=== PATIENT | male | born 2000 | race African-American/Black ===

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

== ENCOUNTER 2020-01-20 13:15 | Emergency (ER) | payer OTHER, SELFPAY ==
[2020-01-20 14:04] VITALS: BP 128/59; PULSE 64; RESP 16; TEMP 36.6; O2SAT 99
--- NOTE | 2020-01-20 15:24 | ED.GENADULT ---
HPI - General Adult General Chief complaint: Urogenital-Male Stated complaint: STI Check Time Seen by Provider: 01/20/20 14:12 Source: patient Mode of arrival: ambulatory Limitations: no limitations History of Present Illness HPI narrative: Patient is a 19-year-old male who presents to emergency department for evaluation of wanting to be tested for STD patient denies any symptoms or exposures patient does not want to be treated at this time only tested patient otherwise in the room in no distress with no other complaints Related Data Home Medications Medication Instructions Recorded Confirmed No Home Medications 01/20/20 01/20/20 Allergies Allergy/AdvReac Type Severity Reaction Status Date / Time No Known Allergies Allergy Verified 01/20/20 15:05 Review of Systems Review of Systems: All systems reviewed & are unremarkable except as noted in HPI and below PMFSH Past Medical History Medical History Asthma Pharyngitis Surgical History Surgical History No significant past surgical history Social History Social History Smoking status: Never smoker Gender identity (if verbalized by the patient): Male Exam Narrative: Exam Narrative: GENERAL: Well-appearing, well-nourished, and in no acute distress. HEAD: Normocephalic, atraumatic. EYES: PERRLA and EOMI. ENT: Nares clear, no rhinorrhea or epistaxis. Mucous membranes moist. ABDOMEN: Soft, nontender, nondistended EXTREMITIES: Normal range of motion. No edema. SKIN: Warm, dry, no rash. NEURO: No focal deficits. Alert and oriented x3. PSYCH: Normal mood and affect. Course Course Emergency Course: Patient in the room in no distress notes he will follow-up with primary care for results Vital Signs Vital signs: Vital Signs Temperature 98 F 01/20/20 14:04 Pulse Rate 64 01/20/20 14:04 Respiratory Rate 16 01/20/20 14:04 Blood Pressure 128/59 L 01/20/20 14:04 Pulse Oximetry 99 01/20/20 14:04 Temperature 98 F 01/20/20 14:04 Pulse Rate 64 01/20/20 14:04 Respiratory Rate 16 01/20/20 14:04 Blood Pressure 128/59 L 01/20/20 14:04 Pulse Oximetry 99 01/20/20 14:04 Medical Decision Making MDM Narrative Medical decision making narrative: Patient will be tested with follow-up with primary care as requested hemodynamically stable no distress Vital Signs Vital Signs: Vital Signs Temperature 98 F 01/20/20 14:04 Pulse Rate 64 01/20/20 14:04 Respiratory Rate 16 01/20/20 14:04 Blood Pressure 128/59 L 01/20/20 14:04 Pulse Oximetry 99 01/20/20 14:04 Temperature 98 F 01/20/20 14:04 Pulse Rate 64 01/20/20 14:04 Respiratory Rate 16 01/20/20 14:04 Blood Pressure 128/59 L 01/20/20 14:04 Pulse Oximetry 99 01/20/20 14:04 Lab Data Labs: Lab Results 01/20/20 Range/Units 14:14 C.trachomatis RNA (TMA) Pending N.gonorrhoeae RNA (TMA) Pending Urine Characteristics Clear Discharge Plan Discharge Clinical Impression: Urethritis Patient Disposition: Home, Self-Care Condition: Stable Instructions: Antibiotic Form, Nonspecific Urethritis in Men (ED) Additional Instructions: Follow up with primary care in the next 2-3 days for re-evaluation and culture results No sex until you have received your results use condoms in the future Increase fluid intake. Tylenol and Motrin for pain and or fever if needed. Follow up with your doctor for further care. Call your doctor or return to the emergency department if needed for worsening symptoms or problems, especially if you have persistent high fever, vomiting, inability to urinate, weakness, blood in your urine, chnage in mental status, or other serious concerns. Prescriptions: No Action No Home Me
[2020-01-20 15:40] LABS: Add Urine Microscopic? YES; Appearance Urine Clear (Clear); Bilirubin Urine Negative (Negative); Blood Urine Negative (Negative); Color Urine Yellow (Yellow); Glucose Urine UA Negative (Negative); Ketones Urine Negative (Negative); Leukocyte Esterase Ur Negative LEU/UL (Negative); Mucus Urine Moderate /lpf; Nitrate Urine Negative (Negative); Protein Urine 2+ mg/dL (Negative); RBC Urine 0-2 /hpf (0-2); Squamous Epithelial Cell Urine Rare /hpf (Few); WBC Urine 0-3 /hpf
[2020-01-20 15:43] LABS: Specific Grav Ur 1.032 (1.001-1.035)
== END 2020-01-20 15:46 | disposition home or self-care (01) ==
PROVIDERS: Emergency Medicine Emergency Medical Services; Emergency Provider Emergency Medicine
DX: N34.2 Other urethritis (principal)
CPT/HCPCS: 81001; 87491; 87591; 99283

== ENCOUNTER 2020-02-08 14:55 | Emergency (ER) | payer OTHER, SELFPAY ==
--- NOTE | ~2020-02-08 | XR_ITS ---
EXAMINATION: XR hand RT min 3V EXAM DATE: 02/08/2020 15:22 INDICATION: Initial encounter following injury, with pain of the right hand. TECHNIQUE: Right hand frontal, lateral and oblique projections obtained and reviewed. There is no pr ior study for comparison. FINDINGS: Acute closed posttraumatic fractures of the right 4th and 5th metacarpal bases, 4th definit espinoza extend into the carpometacarpal joint and suspect that the 5th also does. There is comminution of the 4th metacarpal base, with minimal distraction of fracture fragments. Evidence of mild volar angu lation to both fractures. There is overlying soft tissue swelling. Phalanges unremarkable. IMPRESSION: 1. Right 4th, 5th metacarpal base fractures. Reviewed, dictated and finalized at location [facility]
[2020-02-08 15:03] VITALS: BP 132/73; PULSE 64; RESP 15; TEMP 36.6; O2SAT 96
--- NOTE | 2020-02-08 15:45 | ED.UPPEXIN ---
HPI - Extremity Injury (Upper) General Chief Complaint: Extremity Injury, Upper Stated Complaint: right hand swelling Time Seen by Provider: 02/08/20 15:11 Source: patient Mode of arrival: ambulatory Limitations: no limitations History of Present Illness HPI narrative: This is a 19-year-old male that presents the emergency department for right hand pain after an injury 3 days ago. Reports he was moving and dropped a box on the hand. Reports since he has had increasing swelling in the hand. Also reports some pain to the area. Denies decreased range of motion or numbness. Related Data Allergies Allergy/AdvReac Type Severity Reaction Status Date / Time No Known Allergies Allergy Verified 02/08/20 15:07 Review of Systems Review of Systems: Narrative: CONSTITUTIONAL: Denies fever MUSCULOSKELETAL: Reports joint pain, and myalgia. NEUROLOGIC: Denies numbness All systems reviewed & are unremarkable except as noted in HPI and below PMFSH Past Medical History Medical History Asthma Pharyngitis Surgical History Surgical History No significant past surgical history Social History Social History Smoking status: Never smoker Gender identity (if verbalized by the patient): Male Exam Narrative: Exam Narrative: GENERAL: Well-appearing, well-nourished, and in no acute distress. HEAD: Normocephalic, atraumatic. EYES: EOMI. EXTREMITIES: Normal range of motion. Moderate edema about the dorsal surface of the right hand overlying the metacarpal bones. Tender to palpation of the fourth and fifth metacarpal bones. Normal sensation. Normal radial pulses SKIN: Warm, dry, no rash. NEURO: No focal deficits. Alert and oriented x3. PSYCH: Normal mood and affect Course Vital Signs Vital signs: Vital Signs Temperature 97.9 F 02/08/20 15:03 Pulse Rate 64 02/08/20 15:03 Respiratory Rate 15 02/08/20 15:03 Blood Pressure 132/73 02/08/20 15:03 Pulse Oximetry 96 02/08/20 15:03 Temperature 97.9 F 02/08/20 15:03 Pulse Rate 64 02/08/20 15:03 Respiratory Rate 15 02/08/20 15:03 Blood Pressure 132/73 02/08/20 15:03 Pulse Oximetry 96 02/08/20 15:03 Procedures Orthopedic Splinting/Casting Injury #1: Splinting/Casting Date: 02/08/20 Splinting/Casting Time: 16:22 Side: right Upper Extremity Injury Location: hand Upper Extremity Immobilizer: ulnar gutter Splint: customized in ED Pre-Procedure Neuro Vascular Exam: normal Post-Procedure Neuro Vascular Exam: normal MDM - Extremity Injury (Upper) MDM Narrative Medical decision making narrative: Patient presents the emergency department for right hand pain after an injury 3 days ago. Patient is neurovascularly intact. Right hand x-ray shows fourth and fifth metacarpal base fractures. Patient placed in a ulnar gutter. He will be given hand surgery for follow-up. He was given warnings to return to the ER Imaging Data Radiologist's impression: ITS Impressions Hand X-Ray 02/08/20 15:23 IMPRESSION: 1. Right 4th, 5th metacarpal base fractures. Critical Care Time Critical Care Time Critical Care Time: No Discharge Plan Discharge Clinical Impression: Closed displaced fracture of fourth metacarpal bone of right hand Qualifiers: Encounter type: initial encounter Metacarpal location: base Qualified Code(s): S62.314A - Displaced fracture of base of fourth metacarpal bone, right hand, initial encounter for closed fracture Closed displaced fracture of fifth metacarpal bone of right hand Qualifiers: Encounter type: initial encounter Metacarpal location: base Qualified Code(s): S62.316A - Displaced fracture of base of fifth metacarpal bone, right hand, initial encounter for closed fracture Patient Disposition: [facility]
== END 2020-02-08 16:40 | disposition home or self-care (01) ==
PROVIDERS: Emergency Provider Emergency Medicine; Referring Provider Family Medicine
DX: S62.314A Displaced fracture of base of fourth metacarpal bone, right hand, initial encounter for closed fracture (principal); S62.316A Displaced fracture of base of fifth metacarpal bone, right hand, initial encounter for closed fracture; J45.909 Unspecified asthma, uncomplicated; W20.8XXA Other cause of strike by thrown, projected or falling object, initial encounter
CPT/HCPCS: 29125; 73130; 99284